=== PATIENT | male | born 1935 | race Caucasian/White ===

== ENCOUNTER 2018-12-27 19:03 | Inpatient (IN) ==
[2018-12-27 20:06] LABS: ALLEN TEST YES; BE 1.3 mmoll (-3.0-3.0); BLOOD TYPE ARTERIAL; HCO3-(ACT) 25.9 mmoll (20.0-26.0); METHB 1.2 % (0.0-1.5); O2(CT) 17.1 mL/dL (15.0-23.0); O2HB 96.3 % (95.0-99.0); PCO2(98.6) 35 mmHg (35-45); PO2(98.6) 113 mmHg (60-100); SAMPLE BLOOD; THB 12.5 g/dL (11.5-17.4); pH(98.6) 7.46 (7.35-7.45)
[2018-12-27 20:07] LABS: MODALITY CANNULA
[2018-12-27 20:24] LABS: INR 1.07; PROTIME 14.7 Seconds (11.0-16.0)
[2018-12-27 20:25] LABS: PTT 31.4 Seconds (22.3-41.8)
[2018-12-27 20:25] LABS: URINE SOURCE CLEAN CATCH
[2018-12-27 20:27] LABS: BASO# 0.02 X1000 (0.0-0.2); BASO% 0.1 % (0.0-0.8); EOS# 0.01 X1000 (0.0-0.7); HEMOGLOBIN 12.3 g/dL (14.0-18.0); IMM GRAN# 0.28 X1000 (0.0-0.04); LYMPH# 0.66 X1000 (1.2-3.4); LYMPH% 2.4 % (20.5-51.1); MCH 28.2 PG (27-31); MCHC 32.4 g/dL (33-37); MCV 87.2 FL (81-99); MONO# 3.71 X1000 (0.11-0.59); MONO% 13.3 % (1.7-9.3); MPV 12.1 FL (7.4-10.4); NEUT# 23.25 X1000 (1.4-6.5); NEUT% 83.2 % (42.2-75.2); PLT 121 X1000 (130-400); RBC 4.36 XMIL (4.7-6.1); RDW 14.9 % (11.5-14.5); WBC 27.93 X1000 (4.8-10.8)
[2018-12-27 20:39] LABS: ALB/GLOB RATIO 1.1; ALBUMIN 3.8 g/dL (3.5-5.0); CALCIUM 9.8 mg/dL (8.8-10.2); CREATININE 1.4 mg/dL (0.7-1.2); POTASSIUM 3.3 mmol/L (3.5-5.1); TOTAL BILIRUBIN 0.59 mg/dL (0.20-1.00); TOTAL PROTEIN 7.4 g/dL (6.3-8.3)
--- NOTE | 2018-12-27 20:39 | Diag Imaging Result Doc PS360 ---
EXAM: CHEST-1 VIEW - 12/27/2018 HISTORY: sob, low O2 sat TECHNIQUE: One view chest COMPARISON: 10/08/2017 FINDINGS: Heart size appears within normal limits. There is some tortuosity of the thoracic aorta, although this is less conspicuous compared to prior. There are some ill-defined atelectasis at the left base. The remainder the lungs appear essentially clear. There is no dense consolidation, substantial pleural effusion, or pneumothorax identified. IMPRESSION: Mild atelectasis at left base. No other discrete evidence of acute disease. Electronically signed by Moi Arambula 12/27/2018 8:37 PM
[2018-12-27 20:57] LABS: BILIRUBIN URINE MODERATE (NEGATIVE); BLOOD URINE LARGE (NEGATIVE); CLARITY CLEAR (CLEAR); COLOR RED; GLUCOSE URINE 100 mg/dL (NEGATIVE); KETONE URINE 15 mg/dL (NEGATIVE); LEUKOCYTES URINE MODERATE (NEGATIVE); NITRITE URINE POSITIVE (NEGATIVE); PH URINE 6.5; PROTEIN URINE >=300 mg/dL (NEGATIVE)
[2018-12-27 20:59] LABS: URINE BACTERIA NEGATIVE /HFP; URINE EPITHELIAL CELLS <10 /HPF (<10); URINE RBC TNTC /HPF (<10); URINE WBC <10 /HPF (<10)
[2018-12-27 21:00] LABS: URINE CAST NONE SEEN /LPF; URINE CRYSTAL NONE SEEN /HPF; URINE YEAST NONE SEEN /HPF
--- NOTE | 2018-12-27 22:32 | PROVIDER DOCUMENTATION ---
This chart was entered by Sarah Garcia Scribe, acting as scribe for Betito Garcia MD. HPI-Respiratory General - General Stated Complaint: DECREASED SPO2 Time Seen by Provider: 12/27/18 19:32 Source: RN/ Allergies/Adverse Reactions: Patient Allergies Allergy/AdvReac Type Severity Reaction Status Date / Time morphine Allergy Unknown Verified 09/15/17 10:14 Home Medications: Home Medication List Medication Instructions Recorded Confirmed Last Taken Type Brimonidine 0.1% Ophth Soln 1 drop OTIC BID 02/09/15 09/16/17 02/09/15 History [Alphagan P 0.1% Ophth Soln] Bisacodyl [Dulcolax] 10 mg [place] QHS PRN #12 supp 09/25/17 09/16/17 Unknown Rx Clonidine [Catapres] 0.1 mg PO TID tablet 09/25/17 Unknown Rx Levothyroxine [Synthroid] 75 microgm PO DAILY tablet 09/25/17 Unknown Rx Melatonin 5 mg PO QHS@2000 tablet 09/25/17 Unknown Rx Acetaminophen [Tylenol] 650 mg PO Q4H PRN PRN tablet 10/09/17 Unknown Rx Folic Acid 1 mg PO DAILY tablet 10/09/17 Unknown Rx Guar Gum [Benefiber Packet] 1 each PO DAILY packet 10/09/17 Unknown Rx Memantine [Namenda] 5 mg PO BID tablet 10/09/17 Unknown Rx Menthol/Zinc Oxide Ointment 1 gm TOP PRN PRN tube 10/09/17 Unknown Rx [Calmoseptine Ointment] Prazosin [Minipress] 2 mg PO QHS capsule 10/09/17 Unknown Rx Sertraline [Zoloft] 25 mg PO DAILY tablet 10/09/17 Unknown Rx Vancomycin [Vancocin] 125 mg PO Q6HR capsule 10/09/17 Unknown Rx - History of Present Illness-Resp Nature of Presenting Problem: 83 yom presents w/ c/o rn is historian. pt arrived via [facility] and had low o2 sat in the 80s. pt lives in residential. pt has ams, has had uti and being tx w/antibiotics. pt also running fever 101. pt has hx of parkinsons, mi x 2, hyperlipdemia, htn, cva, dementia, neuropathy and prostate cancer. pt non smoker. Review of Systems - Adult - REVIEW OF SYSTEMS - ADULT Constitutional: reports: see HPI, fever (101). denies: chills, fatique, night sweats Eyes: reports: no symptoms reported Ears, Nose, Mouth & Throat: reports: no symptoms reported Cardiovascular: reports: no symptoms reported Respiratory: reports: see HPI, other (low 02). denies: cough, dyspnea on exertion, excessive sputum production, hemoptysis Gastrointestinal: reports: no symptoms reported Genitourinary: reports: no symptoms reported Musculoskeletal: reports: no symptoms reported Integumentary: reports: no symptoms reported Neurological: reports: no symptoms reported Psychiatric: reports: no symptoms reported Endocrine: reports: no symptoms reported Hematologic/Lymphatic: reports: no symptoms reported Allergic/Immunologic: reports: no symptoms reported All Other Systems: Reviewed and Negative Past History - Adult - PAST MEDICAL HISTORY-ADULT Review of Records: reports: Old Records Reviewed, Nursing Assessment Review, Medications Reviewed, Social history reviewed & non-contributory. Major Childhood Illnesses: reports: denies history Cardiovascular: reports: HTN, hyperlipidemia, PR Respiratory: reports: denies history Gastrointestinal: reports: denies history Obstetrical/Gynecological: reports: denies history Genitourinary: reports: denies history Musculoskeletal: reports: denies history Neurological: reports: CVA, dementia Endocrine/Immune: reports: denies history Other Conditions: reports: other cancer - PRIOR SURGERIES/PROCEDURES Surgical/Procedure History: reports: appendectomy, cholecystectomy, cardiac stent, hernia repair - IMMUNIZATION STATUS Childhood Immunizations: See Nurse Assessment Flu Vaccine: See Nurse Assessment - FAMILY HISTORY Family History: reviewed, not pertinent - SOCIAL HISTORY Smoking: non-smoker Substance Use: none/never Physical Exam-General - PHYSICAL EXAM-ADULT Initial Vital Signs Reviewed: Yes - CONSTITUTIONAL General Appearance: alert, mild distress, thin, slow to respond. negative: lethargic, obtunded, combative - EYES Eyes: PERRL/EOMI - HEAD, EARS, NOSE, MOUTH & THROAT HENMT: normocephalic/atraumatic, moist mucous membranes, normal ENT inspection - NECK Neck: non-tender, full range of motion, supple, normal inspection - RESPIRATORY Respiratory: chest non-tender, lungs clear, normal breath sounds, no pleuratic chest pain, no respiratory distress, no accessory muscle use. negative: respiratory distress, decreased breath sounds, accessory muscle use - CARDIOVASCULAR Cardiovascular: normal peripheral pulses, no edema, no gallop, no JVD, no murmur , tachycardia. negative: regular rate, rhythm, JVD, bradycardia - GASTROINTESTINAL (ABDOMEN) Abdominal Exam: normal bowel sounds, non tender, soft - LYMPHATIC Lymphatic: no adenopathy - MUSCULOSKELETAL Back Exam: normal inspection, no CVA tenderness, no vertebral tenderness Extremity: normal range of motion, non-tender, normal inspection Peripheral Pulses: radial (R): 2+, radial (L): 2+ - SKIN Integumentary: normal turgor, warm/dry, mottled. negative: normal color, abrasi on(s), blanching, cyanosis - NEUROLOGIC Neurologic: negative: assistant research scientist II-XII nml as tested, grossly normal, no motor/sensory deficits, aphasia, EOM palsy, facial droop, focal weakness - PSYCHIATRIC Psych/Mental Status: disoriented x 3. negative: normal thought content, normal thought process, oriented x 3, paranoid, tearful Progress - PLAN OF CARE/RESULTS Progress/Plan/Lab Results: Vital Signs - 8 hr 12/27/18 19:25 12/27/18 19:31 12/27/18 19:50 Temperature 97.9 F Pulse Rate 106 H 104 H 102 H Respiratory Rate 21 21 22 Blood Pressure 136/75 131/75 O2 Sat by Pulse Oximetry 94 L 91 L 94 L 12/27/18 20:00 12/27/18 20:10 12/27/18 20:20 Temperature Pulse Rate 101 H 97 H 94 H Respiratory Rate 23 21 20 Blood Pressure 128/80 O2 Sat by Pulse Oximetry 94 L 95 97 12/27/18 20:30 12/27/18 20:40 12/27/18 20:50 Temperature Pulse Rate 88 87 87 Respiratory Rate 17 18 19 Blood Pressure 112/71 O2 Sat by Pulse Oximetry 94 L 96 95 12/27/18 21:00 12/27/18 21:30 12/27/18 22:00 Temperature Pulse Rate 86 77 80 Respiratory Rate 18 20 19 Blood Pressure 117/72 107/62 124/71 O2 Sat by Pulse Oximetry 98 95 95 12/27/18 22:01 Influenza Screen - Final Nasopharyngeal Laboratory Results - last 24 hr 12/27/18 12/27/18 12/27/18 19:30 19:30 19:30 WBC 27.93 H RBC 4.36 L Hgb 12.3 L Hct 38.0 L MCV 87.2 MCH 28.2 MCHC 32.4 L RDW Std Deviation 14.9 H Plt Count 121 L MPV 12.1 H Immature Gran % (Auto) 1.0 H Neut % (Auto) 83.2 H Lymph % (Auto) 2.4 L [place] % (Auto) 13.3 H Eos % (Auto) 0.0 Baso % (Auto) 0.1 Immature Gran # (Auto) 0.28 H Neut # (Auto) 23.25 H Lymph # (Auto) 0.66 L [place] # (Auto) 3.71 H Eos # (Auto) 0.01 Baso # (Auto) 0.02 PT 14.7 INR 1.07 PTT (Actin FS) 31.4 Specimen Type Sample Site pH pCO2 pO2 HCO3 Base Excess Oxyhemoglobin ABG O2 Sat (Calculated) ABG O2 Saturation ABG Carboxyhemoglobin ABG Methemoglobin Janes Test A-a O2 Difference Total Hemoglobin Lactate Liter Flow Blood Gas Modality FiO2 % Sodium 143 Potassium 3.3 L Chloride 104 Carbon Dioxide 23 L Anion Gap 16 BUN 33 H Creatinine 1.4 H Estimated GFR/1.73 m2 48 BUN/Creatinine Ratio 24 Glucose 145 H Calculated Osmolality 295 Calcium 9.8 Total Bilirubin 0.59 AST 19 ALT 10 Alkaline Phosphatase 64 Creatine Kinase 50 Troponin T Total Protein 7.4 Albumin 3.8 Globulin 3.6 Albumin/Globulin Ratio 1.1 Plasma Lactate Urine Source Urine Color Urine Clarity Urine Turbidity Urine pH Ur Specific Creole Urine Protein Ur Glucose (Stick) Urine Ketones Ur Ketones (Stick) Urine Blood Urine Nitrite Urine Bilirubin Urine Urobilinogen Urobilinogen Dipstick Urine Leukocytes Urine WBC (Auto) Urine RBC (Auto) U Epithel Cells (Auto) Urine Bacteria (Auto) Urine Microscopic RBC Urine WBC Urine Microscopic WBC Ur Epithelial Cells Urine Crystals Urine Bacteria Urine Casts Urine Yeast Urine Glucose 12/27/18 12/27/18 12/27/18 19:30 19:30 19:45 WBC RBC Hgb Hct MCV MCH MCHC RDW Std Deviation Plt Count MPV Immature Gran % (Auto) Neut % (Auto) Lymph % (Auto) [place] % (Auto) Eos % (Auto) Baso % (Auto) Immature Gran # (Auto) Neut # (Auto) Lymph # (Auto) [place] # (Auto) Eos # (Auto) Baso # (Auto) PT INR PTT (Actin FS) Specimen Type ARTERIAL Sample Site R BRACHIAL pH 7.46 H pCO2 35 pO2 113 H HCO3 25.9 Base Excess 1.3 Oxyhemoglobin 96.3 ABG O2 Sat (Calculated) 17.1 ABG O2 Saturation 99.0 ABG Carboxyhemoglobin 1.40 ABG Methemoglobin 1.2 Janes Test YES A-a O2 Difference 71.0 Total Hemoglobin 12.5 Lactate 2.30 H Liter Flow 3.0 Blood Gas Modality CANNULA FiO2 % 32.0 Sodium Potassium Chloride Carbon Dioxide Anion Gap BUN Creatinine Estimated GFR/1.73 m2 BUN/Creatinine Ratio Glucose Calculated Osmolality Calcium Total Bilirubin AST ALT Alkaline Phosphatase Creatine Kinase Troponin T 0.177 H Total Protein Albumin Globulin Albumin/Globulin Ratio Plasma Lactate 2.3 H Urine Source Urine Color Urine Clarity Urine Turbidity Urine pH Ur Specific Creole Urine Protein Ur Glucose (Stick) Urine Ketones Ur Ketones (Stick) Urine Blood Urine Nitrite Urine Bilirubin Urine Urobilinogen Urobilinogen Dipstick Urine Leukocytes Urine WBC (Auto) Urine RBC (Auto) U Epithel Cells (Auto) Urine Bacteria (Auto) Urine Microscopic RBC Urine WBC Urine Microscopic WBC Ur Epithelial Cells Urine Crystals Urine Bacteria Urine Casts Urine Yeast Urine Glucose 12/27/18 20:20 WBC RBC Hgb Hct MCV MCH MCHC RDW Std Deviation Plt Count MPV Immature Gran % (Auto) Neut % (Auto) Lymph % (Auto) [place] % (Auto) Eos % (Auto) Baso % (Auto) Immature Gran # (Auto) Neut # (Auto) Lymph # (Auto) [place] # (Auto) Eos # (Auto) Baso # (Auto) PT INR PTT (Actin FS) Specimen Type Sample Site pH pCO2 pO2 HCO3 Base Excess Oxyhemoglobin ABG O2 Sat (Calculated) ABG O2 Saturation ABG Carboxyhemoglobin ABG Methemoglobin Janes Test A-a O2 Difference Total Hemoglobin Lactate Liter Flow Blood Gas Modality FiO2 % Sodium Potassium Chloride Carbon Dioxide Anion Gap BUN Creatinine Estimated GFR/1.73 m2 BUN/Creatinine Ratio Glucose Calculated Osmolality Calcium Total Bilirubin AST ALT Alkaline Phosphatase Creatine Kinase Troponin T Total Protein Albumin Globulin Albumin/Globulin Ratio Plasma Lactate Urine Source CLEAN CATCH Urine Color RED Urine Clarity CLEAR Urine Turbidity Cancelled Urine pH 6.5 Ur Specific Creole 1.020 Urine Protein >=300 A Ur Glucose (Stick) Cancelled Urine Ketones 15 A Ur Ketones (Stick) Cancelled Urine Blood LARGE A Urine Nitrite POSITIVE A Urine Bilirubin MODERATE A Urine Urobilinogen 2.0 H Urobilinogen Dipstick Cancelled Urine Leukocytes Cancelled Urine WBC (Auto) Cancelled Urine RBC (Auto) Cancelled U Epithel Cells (Auto) Cancelled Urine Bacteria (Auto) Cancelled Urine Microscopic RBC TNTC A Urine WBC MODERATE A Urine Microscopic WBC <10 Ur Epithelial Cells <10 Urine Crystals NONE SEEN Urine Bacteria NEGATIVE Urine Casts NONE SEEN Urine Yeast NONE SEEN Urine Glucose 100 A Orders Category Date Time Status Cardiac Monitoring DIRECTED Care 12/27/18 19:42 Active IV Insertion ORDERED Care 12/27/18 19:42 Completed Notify MD of + Sepsis Screen NOW Care 12/27/18 19:42 Active Notify Physician As Ordered Care 12/27/18 19:42 Active CHEST-1 VIEW [RAD] Stat Exams 12/27/18 19:42 Completed ABG [RESP] Routine Lab 12/27/18 19:45 Completed BLOOD CULTURE [BLDCUL] Stat Lab 12/27/18 19:30 Results CBC WITH DIFF [HEME] Stat Lab 12/27/18 19:30 Completed CK PROFILE [SP CHEM] Stat Lab 12/27/18 19:30 Completed COMPREHENSIVE METABOLIC PANEL [CHEM] Stat Lab 12/27/18 19:30 Completed D-DIMER [COAG] Stat Lab 12/27/18 22:25 Uncollected INFLUENZA SCREEN A/B Stat Lab 12/27/18 22:01 Completed LACTATE, PLASMA [CHEM] Stat Lab 12/27/18 19:30 Completed PROTIME WITH INR [COAG] Stat Lab 12/27/18 19:30 Completed PTT [COAG] Stat Lab 12/27/18 19:30 Completed TROPONIN T Stat Lab 12/27/18 19:30 Completed URINE CULTURE [RM] Routine Lab 12/27/18 21:05 Received Oxygen Device Stat Oth 12/27/18 19:42 Active EKG [EKG] Stat Ther 12/27/18 19:16 Ordered Result Diagrams: 12/27/18 19:30 12/27/18 19:30 - EKG 1 Time of EKG reading by physician:: 19:22 EKG Read and Signed by:: Betito Garcia EKG Interpretation (*Must complete 3 of following elements*): Abnormal Rate: 106 (left anterior fascicular block ) Rhythm: ST Desmet: normal [place] Interval: normal Comments: anterior infarct, age undetermined - XRAY 1 XRAY: Bilateral XRAY Study: Chest (EXAM: CHEST-1 VIEW - 12/27/2018 HISTORY: sob, low O2 sat TECHNIQUE: One view chest COMPARISON: 10/08/2017 FINDINGS: Heart size appears within normal limits. There is some tortuosity of the thoracic aorta, although this is less conspicuous compared to prior. There are some ill-defined atelectasis at the left base. The remainder the lungs appear essentially clear. There is no dense consolidation, substantial pleural effusion, or pneumothorax identified. IMPRESSION: Mild atelectasis at left base. No other discrete evidence of acute disease. Electronically signed by Moi Arambula 12/27/2018 8:37 PM) Comparison with other Films: changes noted Departure - Departure Date of Disposition Decision: 12/27/18 Time of Disposition Decision: 22:30 DIAGNOSIS: Hypoxia UTI (urinary tract infection) Qualifiers: Urinary tract infection type: acute cystitis Hematuria presence: without hematuria Qualified Code(s): N30.00 - Acute cystitis without hematuria Disposition: ADMITTED INPATIENT 09 Certified Medical Emergency: Emergent Condition: Stable - Critical Care Note This patient required my direct & personal management of CC.: No Attestation - Physician/ SRAVAN Attestation Patient care was provided by Advanced Practice Provider:: No The physician spent face to face time with patient:: Yes Advanced Practice Provider documentation review:: Supervising physician onsite and consulted in the evaluation and care of this patient. The physician did have a face to face encounter with the patient. This chart was documented by the indicated scribe, (Sarah Garcia Scribe) and accurately reflects the services I performed and decisions made by me, Betito Garcia MD, as attested by the provider's signature.
[2018-12-27] MEDS ORDERED: NS 1,000 ML IV ONE (22:34)
[2018-12-27] MEDS ORDERED: LEVAQUIN 750 MG/D5W 750 MG/150 ML IVPB IV ONE (22:35)
[2018-12-27] MEDS ORDERED: NS 1,000 ML IV PRN (23:35)
[2018-12-28] MEDS: ROCEPHIN 1 GM in NS 50 ML IV SCH (00:10)
--- NOTE | 2018-12-28 00:52 | HISTORY AND PHYSICAL ---
PRIMARY CARE PHYSICIAN: Dr. Mariano. CHIEF COMPLAINT: Dyspnea, low O2 saturation. HISTORY OF PRESENTING ILLNESS: An 83-year-old male with a history of coronary disease, myelodysplasia, thrombocytopenia, hypertension, chronic kidney disease, who resides at [facility], was brought to the emergency department due to staff finding that he had a low O2 saturation around 87%. He was having some difficulty breathing there. He was brought to the emergency department, he was put on supplemental oxygen, about 4 L, and he had improvement. The patient is a poor historian due to his advanced dementia, and most of the history is obtained from previous records. The family members did not know much about his history also. PAST MEDICAL HISTORY: Includes coronary artery disease, [place], myelodysplasia, thrombocytopenia, hypothyroidism, chronic kidney disease, hypertension, TIA, Lewy-body dementia, prostate cancer. PAST SURGICAL HISTORY: Cholecystectomy, coronary stent, cataract surgery. ALLERGIES: Morphine. CURRENT MEDICATIONS: Include clonidine 0.1 mg p.o. t.i.d., folic acid 1 mg p.o. daily, levothyroxine 75 mcg p.o. daily, Namenda 5 mg p.o. b.i.d., prazosin 2 mg p.o. at bedtime, Zoloft 25 mg p.o. daily. SOCIAL HISTORY: No history of smoking, alcohol, or illicit drug use. He is a retired truck sales representative. He is basically bed-bound. FAMILY HISTORY: No history of coronary disease. REVIEW OF SYSTEMS: Unable to obtain due to patient's dementia. PHYSICAL EXAMINATION: GENERAL: A frail, elderly male, he is resting more comfortably now. VITAL SIGNS: Temperature 97.9 degrees, pulse 106, respirations 21, blood pressure 136/75. He is saturating 91% on 4 L. HEENT: Atraumatic, normocephalic. PERRLA. NECK: No masses. CHEST: Clear to auscultation. CARDIOVASCULAR: Regular rate and rhythm. ABDOMEN: Soft. Positive bowel sounds. EXTREMITIES: No edema. NEUROLOGIC: He is awake, alert, oriented x1. GENITOURINARY: No bladder distention. SKIN: Warm. LABORATORIES AND STUDIES: WBCs 27.93, hemoglobin 12.3, hematocrit 38.0, platelets 121,000. Sodium 143, potassium 3.3, chloride 104, CO2 is 23, BUN is 33, creatinine is 1.4. Glucose is 145. Troponin 0.177. UA shows nitrite positive and moderate leukocytes. ASSESSMENT: An 83-year-old male with a history of coronary disease, previous myocardial infarction, myelodysplasia, thrombocytopenia, chronic kidney disease, and advanced dementia, who was brought to the emergency department due to patient having low O2 saturation. He was evaluated in the emergency department, and due to his overall presenting symptoms, he will require admission for further management. 1. Dyspnea, multifactorial. 2. Myelodysplasia. 3. Coronary artery disease. 4. Elevated troponin. 5. Chronic kidney disease. 6. Hypertension. 7. Urinary tract infection. 8. Advanced dementia. PLAN: 1. We will admit patient to [facility]. 2. Continue patient on supplemental oxygen. 3. We will trend his troponin's and consult Cardiology. 4. Monitor his renal function. 5. We will monitor blood pressure closely. Resume antihypertensive agent. 6. We will check urine cultures. Start patient on IV antibiotics. 7. Restart his home medication. 8. Family is still discussing code status. 9. We will continue to follow and reassess and make further recommendation based on patient's clinical course. cc: Mick Wiggins MD
[2018-12-28] MEDS ORDERED: XYLOCAINE 2% JELLY UROJECT ONE (05:49)
[2018-12-28] MEDS ORDERED: TYLENOL PO PRN (11:58)
[2018-12-28] MEDS ORDERED: DULCOLAX PR PRN (11:58)
[2018-12-28] MEDS ORDERED: CALMOSEPTINE OINTMENT TOP PRN (12:06)
[2018-12-28] MEDS ORDERED: KLOR-CON PO ONE (12:21)
[2018-12-28] MEDS ORDERED: NS 1,000 ML IV SCH (13:00)
[2018-12-28] MEDS: CATAPRES PO SCH ×2 (13:30→18:34)
[2018-12-28] MEDS: FOLIC ACID PO SCH (13:31)
[2018-12-28] MEDS: CULTURELLE PO SCH (13:31)
[2018-12-28] MEDS: SYNTHROID PO SCH (13:31)
[2018-12-28] MEDS: BENEFIBER PACKET PO SCH (13:31)
--- NOTE | 2018-12-28 14:04 | PROGRESS NOTE ---
DATE: 12/28/2018 SUBJECTIVE: Patient's chart was reviewed. In summary, patient was brought to the emergency department from his care home facility secondary to low oxygen saturation and fever. Upon arrival, full evaluation was pursued. The patient was admitted with a diagnosis of dyspnea, acute renal dysfunction, elevated troponin, and a urinary tract infection. Upon my arrival, a discussion was held with the patient. Unfortunately, this was quite limited secondary to patient's underlying dementia. I then contacted patient's daughter. A phone conversation of greater than 30 minutes was held regarding patient's underlying condition. Per her report, she was called secondary to fevers yesterday. Prior to this, patient was in his usual state of health. At baseline, he is bedbound an assisted in a chair only intermittently. He is able to feed himself a vast majority of the time, but intermittently needs assistance. He requires a pureed diet with thickened liquids secondary to underlying dysphagia. He is interactive, but over the course of the last several months, this has decreased. Per patient's daughter, he has remained a full code, however, a detailed discussion has not been held with family. Over the course of the night, patient has become more interactive. There has been no evidence of fevers, chills, nausea, vomiting, shortness of breath, or chest discomfort. Upon my asking this morning, patient noted being hungry. OBJECTIVE: Vital signs: T-max 98.5 degrees, heart rate 68 to 96, respirations 15 to 28, blood pressure 107 to 190 over 62 to 106. General: Elderly, no acute distress. Cardiovascular: Regular rate and rhythm. No significant murmurs, rubs, or gallops. Pulmonary: Clear to auscultation bilaterally. Abdomen: Soft, nontender, nondistended. Positive bowel sounds. Extremities: No significant clubbing, cyanosis, or edema. Dermatologic: Evaluation reveals no evidence of rash. Oropharyngeal: Evaluation reveals a dry mucous membrane. LABORATORY DATA: Upon admission, sodium 143, potassium 3.3, chloride 104, bicarb 23, BUN 33, creatinine 1.4, glucose 145, calcium 9.8. Total bilirubin 0.59, total protein 7.4, albumin 3.8, alkaline phosphatase 64, AST 19, ALT 10. Troponin has increased from 0.177 to 0.225. Plasma lactate has improved from 2.3 to 1.1. White blood cell count 27.93, hemoglobin 12.3, hematocrit 38.0, platelet count 121,000. ASSESSMENT AND PLAN: 1. Urinary tract infection with associated systemic inflammatory response syndrome - the patient was initially given a dose of Levaquin. This has been converted to Rocephin. Clinically, patient does appear to have some improvement. We will continue Rocephin for now. A Merino catheter has been placed. We will monitor patient's vital signs very closely in the setting of his acute illness. 2. Dehydration - examination reveals dry mucous membranes. We will continue IV hydration. We will remain aware. Patient does have a history of heart disease, thus we will aggressively, but cautiously, hydrate. 3. Acute renal failure - patient's baseline creatinine appears to be approximately 1.0. Creatinine has increased to 1.4. We will hydrate as described. 4. Elevated troponin - this is an interesting finding. CK levels are within normal limits. I suspect this is a consequence of patient's renal dysfunction. We will continue to follow serial evaluations. Dr. Esteban has been consulted for cardiology evaluation. 5. Elevated D-dimer - this is quite concerning. Unfortunately, I am unable to do a CT angiogram of the chest secondary to his renal dysfunction. The D-dimer may simply be elevated secondary to his systemic illness. We will check lower extremity venous Dopplers. We will determine whether a CT angiogram is appropriate depending on his renal function. If not, we will consider whether a V/Q scan is appropriate. 6. Dyspnea - this likely is multifactorial. On examination today, he does not appear to be dyspneic. We will continue oxygen per protocol. We will remain aware that an underlying pulmonary thromboembolism could be playing a role. 7. Myelodysplasia - we will remain aware. 8. Coronary artery disease - once again, we will remain aware, especially in the setting of an elevated troponin. EKG does not demonstrate acute changes. 9. Hypertension - we will continue patient's home medications. 10. Hypokalemia - we will replete. 11. Advanced dementia - unfortunately, this is significant. This certainly is playing a role in his overall health. I discussed this in detail with patient's family. They understand the risk associated with advanced dementia and subsequent acute illnesses. 12. Hypothyroidism - we will continue patient on home medications. 13. Code status - a detailed discussion was held with patient's daughter. The severity of his illness was explained. At this point, patient's family is interested in continuing full code status. I have asked that she discuss this with her mother and her brother. 14. Disposition - at this point, patient continues to require shelter care in a hospital setting. We will continue holding the patient in the emergency department until a CICU bed is available. cc: MD Kin Roebrson MD
[2018-12-28] MEDS: LOVENOX SUBQ SCH (18:34)
[2018-12-28] MEDS ORDERED: LOVENOX ONE (18:34)
[2018-12-28] MEDS: EXELON 4.6MG/24HRS TD SCH (19:00)
[2018-12-28] MEDS: ALPHAGAN P 0.1% OPHTH SOLN BOTH EYES SCH (21:00)
[2018-12-28] MEDS: REMERON PO SCH (22:15)
[2018-12-28] MEDS: NAMENDA PO SCH (22:15)
[2018-12-28] MEDS: CYMBALTA PO SCH (22:15)
[2018-12-28] MEDS: MELATONIN PO SCH (22:15)
[2018-12-28] MEDS: MINIPRESS PO SCH (22:15)
[2018-12-29] MEDS: ROCEPHIN 1 GM in NS 50 ML IV SCH (01:43)
[2018-12-29 07:35] LABS: BASO# 0.01 X1000 (0.0-0.2); BASO% 0.1 % (0.0-0.8); EOS# 0.06 X1000 (0.0-0.7); EOS% 0.7 % (0.0-10.0); HEMATOCRIT 35.7 % (42.0-52.0); HEMOGLOBIN 11.1 g/dL (14.0-18.0); IMM GRAN# 0.15 X1000 (0.0-0.04); IMM GRAN% 1.8 % (0.0-0.5); LYMPH# 0.88 X1000 (1.2-3.4); LYMPH% 10.3 % (20.5-51.1); MCH 28.1 PG (27-31); MCHC 31.1 g/dL (33-37); MCV 90.4 FL (81-99); MONO# 1.41 X1000 (0.11-0.59); MONO% 16.5 % (1.7-9.3); MPV 11.3 FL (7.4-10.4); NEUT# 6.02 X1000 (1.4-6.5); NEUT% 70.6 % (42.2-75.2); PLT 94 X1000 (130-400); RBC 3.95 XMIL (4.7-6.1); RDW 15.3 % (11.5-14.5); WBC 8.53 X1000 (4.8-10.8)
[2018-12-29 07:54] LABS: ALB/GLOB RATIO 1.1; ALBUMIN 3.5 g/dL (3.5-5.0); CREATININE 1.3 mg/dL (0.7-1.2); POTASSIUM 3.5 mmol/L (3.5-5.1); TOTAL BILIRUBIN 0.48 mg/dL (0.20-1.00); TOTAL PROTEIN 6.7 g/dL (6.3-8.3)
[2018-12-29] MEDS: BENEFIBER PACKET PO SCH (09:00)
[2018-12-29] MEDS ORDERED: MULTI-VITAMIN PO SCH (09:00)
[2018-12-29] MEDS ORDERED: SEROQUEL PO SCH (09:00)
[2018-12-29] MEDS: CATAPRES PO SCH ×3 (11:43→18:46)
[2018-12-29] MEDS: NAMENDA PO SCH ×2 (11:47→21:16)
[2018-12-29] MEDS: SYNTHROID PO SCH (11:47)
[2018-12-29] MEDS: FOLIC ACID PO SCH (11:48)
[2018-12-29] MEDS: CULTURELLE PO SCH (11:59)
[2018-12-29] MEDS: EXELON 4.6MG/24HRS TD SCH (12:02)
[2018-12-29] MEDS ORDERED: KLOR-CON PO ONE (13:22)
[2018-12-29] MEDS ORDERED: POTASSIUM CHLORIDE 20% LIQUID ONE (13:42)
[2018-12-29] MEDS: 1/2 NS 1,000 ML IV SCH (13:44)
[2018-12-29] MEDS: LOVENOX SUBQ SCH (13:46)
--- NOTE | 2018-12-29 14:01 | PROGRESS NOTE ---
DATE: 12/29/2018 SUBJECTIVE: Patient was admitted on 12/28/2018 with a urinary tract infection with systemic inflammatory response syndrome. Additional diagnoses included dehydration, acute renal failure, and elevated troponin. The patient was treated aggressively with antibiotic intervention and hydration. Serial cardiac enzymes were followed. This early afternoon, patient is much more interactive. He is confused in regards to situation and place, but is oriented to person and situation. He denies nausea, vomiting, shortness of breath, or chest discomfort. P.o. intake remains marginal. He complains only of some bilateral leg pain. OBJECTIVE: Vitals: Temperature maximum 99 degrees, heart rate 78 to 91, respirations 15 to 24, blood pressure, 129 to 174/81 to 117. General: Chronically ill-appearing, no acute distress. Cardiovascular: Regular rate and rhythm. No significant murmurs, rubs, or gallops. Pulmonary: Clear to auscultation anteriorly. Abdomen: Soft, nontender, nondistended. Positive bowel sounds. Extremities: Moves all extremities well. No significant clubbing, cyanosis, or edema. Patient does have contractures of bilateral lower extremities. Dermatologic: Evaluation reveals no evidence of rash. LABORATORY DATA: White blood cell count 8.53, hemoglobin 11.1, hematocrit 35.7, platelet counts 94,000. Sodium 152, potassium 3.5, chloride 116, bicarb 23, BUN 21, creatinine 0.3, glucose 110, calcium 9, total bilirubin 0.48, total protein 6.7, albumin 3.5, alkaline phosphatase 61, AST 19, ALT 11, TSH 1.11. ASSESSMENT AND PLAN: 1. Urinary tract infection with associated systemic inflammatory response syndrome: Blood cultures and urine cultures, thus far, are negative. White blood cell count, however, has decreased considerably from 27.93 to 8.53. For now, we will continue Rocephin therapy. We will continue supportive care. 2. Dehydration: Mucous membranes remain dry. Patient was hydrated with normal saline yesterday. Unfortunately, sodium has increased. We will transition patient from normal saline to half- normal saline. We will also encourage increasing p.o. intake. 3. Acute renal failure: Creatinine has improved from 1.4 to 1.3 with hydration. We will continue to follow this. It appears patient's baseline creatinine is within normal limits. 4. Elevated troponin: Patient was diagnosed upon admission, but with normal CK level. I suspect this is secondary to acute renal failure. EKG does not demonstrate acute changes. For now, we will continue supportive care. As patient's condition improves, we will consider whether repeat Cardiology consultation is appropriate. 5. Elevated D-dimer: I suspect this may be elevated secondary to his acute systemic illness, as well as chronic diagnoses. With an elevated creatinine, I am hesitant to pursue a CT angiogram of the chest. Lower extremity venous Dopplers were scheduled yesterday and will be performed when able. As his condition is stable, we will continue supportive care. We will consider whether a V/Q scan is appropriate, depending on his clinical condition. 6. Dyspnea: On examination today, the patient does not support symptoms of dyspnea. We will remain aware. 7. Myelodysplasia: We will remain aware. 8. Coronary artery disease: The patient has known disease. We will continue his optimum medical management. 9. Hypertension: We will continue home medications. 10. Hypokalemia: We will provide an additional dose of potassium chloride. 11. Advanced dementia: Unfortunately, this likely is contributing to his overall condition. The patient's family understands the severity of his illness in the setting of advanced dementia. We will continue supportive care. 12. Hypothyroidism: We will continue patient on replacement. 13. Code status: I discussed this in detail with patient's daughter yesterday. At present time, she was not prepared to make a definitive decision. She will discuss this further with family members. He currently is a Full Code. 14. Disposition: At this point, patient continues to require [facility] care in a hospital setting. We will plan discharge home or to rehabilitation once appropriate. cc: MD Kin Roberson MD
--- NOTE | 2018-12-29 15:38 | ECHO REPORT ---
ORDER DATE: 12/28/2018 ECHOCARDIOGRAPHIC MEASUREMENTS: 1. Interventricular septum 1.1. 2. Left ventricular posterior wall 1.0. 3. Diastolic diameter 5.0. 4. Left atrium 3.6. 5. Aorta 3.6. SUMMARY: 1. Aortic valve leaflets were calcified, trileaflet opening normally. 2. Pulmonic valve was normal. 3. Tricuspid valve was normal. 4. There is mild pulmonary regurgitation. 5. Mitral valve leaflets are normal. 6. There is moderate mitral annular calcification. 7. Tricuspid valve was normal. 8. Normal left ventricular cavity size. 9. Estimated ejection fraction off 40 to 45%. 10. There is mild global hypokinesis. 11. There is mild mitral regurgitation. 12. Mild tricuspid regurgitation. 13. Peak velocity across the tricuspid valve was 2.5 m/sec. 14. Pulmonary artery systolic pressure of 35 mmHg. 15. There is no aortic stenosis. 16. There is mild aortic regurgitation. 17. There is inferior wall hypokinesis. 18. There is no pericardial effusion or obvious intracardiac mass or thrombus seen. cc: MD Kin Oh MD
[2018-12-29] MEDS: ALPHAGAN P 0.1% OPHTH SOLN BOTH EYES SCH ×2 (15:44→21:16)
[2018-12-29] MEDS: MINIPRESS PO SCH (21:16)
[2018-12-29] MEDS: MELATONIN PO SCH (21:16)
[2018-12-29] MEDS: CYMBALTA PO SCH (21:17)
[2018-12-29] MEDS: REMERON PO SCH (21:17)
[2018-12-30] MEDS: ROCEPHIN 1 GM in NS 50 ML IV SCH (01:06)
[2018-12-30 05:23] LABS: BASO# 0.02 X1000 (0.0-0.2); BASO% 0.3 % (0.0-0.8); EOS% 2.8 % (0.0-10.0); HEMATOCRIT 33.2 % (42.0-52.0); HEMOGLOBIN 10.4 g/dL (14.0-18.0); IMM GRAN# 0.21 X1000 (0.0-0.04); IMM GRAN% 2.9 % (0.0-0.5); LYMPH# 1.28 X1000 (1.2-3.4); LYMPH% 17.8 % (20.5-51.1); MCH 28.6 PG (27-31); MCHC 31.3 g/dL (33-37); MCV 91.2 FL (81-99); MONO# 1.68 X1000 (0.11-0.59); MONO% 23.4 % (1.7-9.3); MPV 11.7 FL (7.4-10.4); NEUT% 52.8 % (42.2-75.2); PLT 97 X1000 (130-400); RBC 3.64 XMIL (4.7-6.1); RDW 15.4 % (11.5-14.5); WBC 7.19 X1000 (4.8-10.8)
[2018-12-30 05:37] LABS: AGAP 12; ALB/GLOB RATIO 1.1; ALBUMIN 3.2 g/dL (3.5-5.0); ALKALINE PHOSPHATASE 52 U/L (32-122); BUN 16 mg/dL (8-22); CALCIUM 8.3 mg/dL (8.8-10.2); CHLORIDE 115 mmol/L (98-107); CK TOTAL 94 U/L (24-204); COSMO 296; CREATININE 1.1 mg/dL (0.7-1.2); ESTIMATED GFR > 60; GLUCOSE 108 mg/dL (70-104); GOT 16 U/L (10-34); GPT 10 U/L (10-44); POTASSIUM 3.5 mmol/L (3.5-5.1); SODIUM 148 mmol/L (136-145); TCO2 21 mmol/L (25-35); TOTAL BILIRUBIN 0.34 mg/dL (0.20-1.00); TOTAL PROTEIN 6.1 g/dL (6.3-8.3)
[2018-12-30] MEDS: 1/2 NS 1,000 ML IV SCH (06:05)
[2018-12-30 07:26] LABS: EOS 1 % (1-10); LYMPHS 22 % (21-51); MONO 17 % (1-9); SEGS 60 % (42-75)
--- NOTE | 2018-12-30 07:44 | EKG Report ---
Test Performed on : 12/27/2018 7:22:33 PM Test Reason : sob Blood Pressure : / mmHG Vent. Rate : 106 BPM Atrial Rate : 106 BPM P-R Int : 184 ms QRS Dur : 098 ms QT Int : 348 ms P-R-T Axes : 022 -56 061 degrees QTc Int : 462 ms Sinus tachycardia. Left anterior fascicular block Anterior infarct , age undetermined Abnormal ECG When compared with ECG of 14-SEP-2017 13:44, Anterior infarct is now present T wave inversion no longer evident in Inferior leads Unconfirmed Result
[2018-12-30] MEDS: BENEFIBER PACKET PO SCH (09:47)
[2018-12-30] MEDS: CULTURELLE PO SCH (09:47)
[2018-12-30] MEDS: SYNTHROID PO SCH (09:47)
[2018-12-30] MEDS: SEPTRA DS PO SCH ×2 (09:47→20:40)
[2018-12-30] MEDS: EXELON 4.6MG/24HRS TD SCH (09:47)
[2018-12-30] MEDS: FOLIC ACID PO SCH (09:47)
[2018-12-30] MEDS: CATAPRES PO SCH ×3 (09:47→18:11)
[2018-12-30] MEDS: NAMENDA PO SCH ×2 (09:47→20:41)
[2018-12-30] MEDS: ALPHAGAN P 0.1% OPHTH SOLN BOTH EYES SCH ×2 (09:48→20:39)
[2018-12-30] MEDS: THERA M PLUS PO SCH (09:48)
[2018-12-30] MEDS: LOVENOX SUBQ SCH (12:45)
[2018-12-30] MEDS: MINIPRESS PO SCH (20:39)
[2018-12-30] MEDS: SEROQUEL PO SCH (20:41)
[2018-12-30] MEDS: REMERON PO SCH (20:41)
[2018-12-30] MEDS: CYMBALTA PO SCH (20:41)
[2018-12-30] MEDS: MELATONIN PO SCH (20:41)
--- NOTE | 2018-12-31 09:27 | Extremity Venous Study ---
PROCEDURE NAME: Venous U/S Bilateral Legs - 12/28/2018 REQUESTING PHYSICIAN: Dr. Portillo. MAIN LINE ASSEMBLER: Barbara. INDICATION: Elevated D-dimer. EQUIPMENT: [employer] Vivid E9 ultrasound system with a 9 L-D transducer. FINDINGS: Images of the bilateral lower extremity venous systems were obtained in both sagittal and transverse planes. Doppler was used to evaluate the veins for spontaneity, phasicity, respiratory excursion, and digital augmentation. RESULTS: Normal venous compression. Normal venous flow. No obvious superficial or deep venous thrombosis noted. INTERPRETATION: Essentially normal bilateral lower extremity venous study. cc: MD Wili Gonzales MD Russell T. Barr, MD
[2018-12-31] MEDS: NAMENDA PO SCH ×2 (09:59→20:22)
[2018-12-31] MEDS: FOLIC ACID PO SCH (09:59)
[2018-12-31] MEDS: EXELON 4.6MG/24HRS TD SCH (09:59)
[2018-12-31] MEDS: SYNTHROID PO SCH (09:59)
[2018-12-31] MEDS: CULTURELLE PO SCH (09:59)
[2018-12-31] MEDS: THERA M PLUS PO SCH (09:59)
[2018-12-31] MEDS: CATAPRES PO SCH ×3 (09:59→20:22)
[2018-12-31] MEDS: BENEFIBER PACKET PO SCH (10:00)
[2018-12-31] MEDS: ALPHAGAN P 0.1% OPHTH SOLN BOTH EYES SCH ×2 (10:00→20:22)
[2018-12-31] MEDS: LOVENOX SUBQ SCH (15:56)
[2018-12-31] MEDS: MELATONIN PO SCH (20:21)
[2018-12-31] MEDS: MINIPRESS PO SCH (20:21)
[2018-12-31] MEDS: REMERON PO SCH (20:21)
[2018-12-31] MEDS: CYMBALTA PO SCH (20:22)
[2018-12-31] MEDS: SEPTRA LIQUID PO SCH (20:23)
[2018-12-31] MEDS: SEROQUEL PO SCH (20:23)
[2019-01-01 07:29] LABS: HEMATOCRIT 36.4 % (42.0-52.0); HEMOGLOBIN 11.4 g/dL (14.0-18.0); MCH 28.1 PG (27-31); MCHC 31.3 g/dL (33-37); MCV 89.9 FL (81-99); MPV 11.3 FL (7.4-10.4); RBC 4.05 XMIL (4.7-6.1); RDW 14.7 % (11.5-14.5); WBC 9.51 X1000 (4.8-10.8)
[2019-01-01 07:43] LABS: AGAP 12; BUN 9 mg/dL (8-22); CALCIUM 8.9 mg/dL (8.8-10.2); CHLORIDE 105 mmol/L (98-107); COSMO 276; ESTIMATED GFR > 60; GLUCOSE 90 mg/dL (70-104); POTASSIUM 3.6 mmol/L (3.5-5.1); SODIUM 139 mmol/L (136-145); TCO2 22 mmol/L (25-35)
[2019-01-01] MEDS: THERA M PLUS PO SCH (08:26)
[2019-01-01] MEDS: CULTURELLE PO SCH (08:26)
[2019-01-01] MEDS: FOLIC ACID PO SCH (08:26)
[2019-01-01] MEDS: CATAPRES PO SCH ×3 (08:26→17:44)
[2019-01-01] MEDS: SYNTHROID PO SCH (08:26)
[2019-01-01] MEDS: ALPHAGAN P 0.1% OPHTH SOLN BOTH EYES SCH (08:27)
[2019-01-01] MEDS: SEPTRA LIQUID PO SCH (08:27)
[2019-01-01] MEDS: NAMENDA PO SCH (08:27)
[2019-01-01] MEDS: BENEFIBER PACKET PO SCH (08:27)
[2019-01-01] MEDS: EXELON 4.6MG/24HRS TD SCH (08:27)
[2019-01-01] MEDS ORDERED: NIZORAL 2% CREAM TOP SCH (09:00)
--- NOTE | 2019-01-01 10:01 | DISCHARGE SUMMARY ---
ADMISSION DATE: 12/27/2018 DISCHARGE DATE: 01/01/2019 FINAL DIAGNOSIS: 1. Acute pyelonephritis. 2. Transient hypoxemia. 3. Sepsis secondary to number 1. 4. Advanced Lewy body dementia. 5. Hypothyroidism. 6. Essential hypertension. 7. History of coronary artery disease. 8. History of myelodysplasia with thrombocytopenia. PRESENT ILLNESS: Mr. Umaña is an 83-year-old gentleman with advanced Lewy body dementia, who is a long-term bedridden resident of [facility]. He was found to have a urinary tract infection several days prior to admission and begun on oral antibiotics at the half-way. However, on the day of admission, he was noted to be hypoxemic with an O2 saturation of 87%, transferred to the emergency room where he improved on low-flow nasal O2. PHYSICAL EXAMINATION: General: Revealed a frail elderly gentleman with a greasy scaly facial rash with some moderate erythema. Eyes: Pupils reactive. Lungs: Clear. Cardiac exam: Regular rate and rhythm. Neurologic: He was alert but confused. DATABASE: White blood count 27,900, hemoglobin 12.3. Potassium 3.3, BUN 33, creatinine 1.4. Urinalysis: Positive nitrite and moderate leukocytes. Troponin was slightly elevated at 0.18. Lactate 2.3 HOSPITAL COURSE: He was admitted to the CICU and Cardiology consultation was requested. However, the patient was agitated and refused to talk to Dr. Esteban. He had an echocardiogram, which was fairly unremarkable, and serial CPKs diminished slightly but it is felt that these were probably elevated due to chronic kidney disease and not to myocardial ischemia. His EKG was fairly unremarkable with a left anterior fascicular block. His urine culture was no growth probably due to previous antibiotics. He maintained his improvement on oral trimethoprim/sulfa suspension. His white blood count diminished rapidly and has remained normal. He is discharged back to [facility] in improving condition. I will continue to follow him at [facility]. DISCHARGE MEDICATIONS: 1. Ketoconazole cream 2% topically to his face for 30 days. 2. Septra suspension 20 mL twice a day for 6 more days. 3. Multivitamin 1 daily. 4. Probiotic capsules 1 daily. 5. Alphagan ophthalmic solution 1 drop twice a day in each eye. 6. Catapres 0.1 mg 3 times a day. 7. Synthroid 75 mcg daily. 8. Dulcolax suppository p.r.n. for constipation. 9. Folic acid 1 mg daily. 10.Benefiber 1 packet daily in any liquid. 11.Ceftin ointment topically to the groin area as needed for rash. 12.Prazosin 2 mg at bedtime. 13.Tylenol 650 mg q.4 hours p.r.n. for pain or fever. 14.Exelon patch 4.6 mg topically daily. 15.Duloxetine 20 mg at bedtime. 16.Mirtazapine 15 mg at bedtime. 17.Melatonin 3 mg 2 hours before bedtime. 18.Namenda 10 mg twice a day. 19.Seroquel 50 mg at bedtime. At the half-way, he has been followed by [facility] and their staff and they are the ones prescribing his psychiatric medications and will continue to follow him. cc: Kin Mariano MD MTDD
[2019-01-01] MEDS: LOVENOX SUBQ SCH (12:08)
[2019-01-01 15:58] VITALS: BP 128/55
== END 2019-01-01 21:01 | DRG 872 ==
LOC: ED 19:03 → EDIPHOLD 12-28 01:04 → SUATTDRO 12-28 01:04 → 3S 12-29 17:45 → 3N 12-30 14:20
PROVIDERS: ADMIT Internal Medicine; ATTEND Internal Medicine
CPT/HCPCS: 51702; 51798; 71010; 71045; 80048; 80053; 81001; 82550; 82805; 83605; 84443; 84484; 85025; 85027; 85379; 85610; 85730; 87040; 87088; 87275; 87276; 87804; 93005; 93306; 93970; 96361; 96365; 96367; 96372; 96375; 97161; 99285; A9270; C8929; J0696; J1650; J1956; J7030; Q9957